=== PATIENT | male | born 1965 | race American Indian/Alaskan Native ===

== ENCOUNTER 2018-06-09 11:31 | Outpatient (CLI) | payer BC ==
--- NOTE | 2018-06-09 15:54 | CT ---
CT ABDOMEN AND PELVIS WITH CONTRAST: 06/09/18 HISTORY: Left lower quadrant pain. Flank pain. COMPARISON: None. FINDINGS: There is atelectasis in the lung bases. No pericardial effusion. There are innumerable hypodensities throughout the liver. These do not cause vascular distortion. There is a peripheral triangular shaped hyperdensity in hepatic segment VII but in the capsule which is hyperintense on the portal venous ph ase and on delayed phase continues to be hyperintense. This may reflect an area of vascular shunting given this triangular and peripheral appearance versus hemangioma. Although given that there are hypo densities seen in the middle of this area of increased hyperdensity, a vascular shunt if felt much le ss likely. There is severe submucosal fatty infiltration thickening of the ascending colon for a long segment ex tending into the appendiceal base as well as the terminal ileum. The kidneys are unremarkable as well as the spleen and pancreas. No retroperitoneal adenopathy. Aortoiliac contour is nonaneurysmal. Ther e is mild increased mesenteric fat of the sigmoid colon. No acute osseous abnormality. IMPRESSION: 1. Innumerable hypodensities throughout the liver. Those of which measure greater than 1 cm rome ure fluid attenuation suggesting of biliary hamartomas. 2. Peripheral hyperdensity of hepatic segment VII abutting the capsule with the biliary hamartom as extending through a likely vascular shunt. 3. Extensive submucosal fatty infiltration of the ascending colon seen on both the portal venous and delayed phase, likely sequela of chronic inflammatory bowel disease which also extends to the ap pendiceal base and terminal ileum. POS: BRANDI
[2018-06-09] MEDS ORDERED: Iopamidol 370 76% 100 ML VIAL ONE (15:57)
== END 2018-06-09 11:32 | disposition home or self-care (01) ==
LOC: CT 11:31
PROVIDERS: ATTEND Internal Medicine
DX: R10.32 Left lower quadrant pain (principal); K76.89 Other specified diseases of liver; K63.89 Other specified diseases of intestine
CPT/HCPCS: 74177